=== PATIENT | male | born 1950 | race Caucasian/White ===

== ENCOUNTER 2024-11-26 11:20 | Day surgery (SDC) | payer MEDICARE ==
[~2024-11-26] VITALS: Ht 167.6 cm; Wt 118.8 kg
[~2024-11-26 11:20] MED LIST: ALLO300T2 PO; B-12100010 PO; BAYE81TA10 PO; D200CAP3 PO; FOLI1TAB11 PO; FOLI400T5 PO; FURO20TA2 PO; GLIP10TA15 PO; INVO100T PO; JARD1TAB3 PO; LIDOCAINE 2% 100MG/5ML SDV (FOR ANES.) As Ordered ONE; LISI20TA33 PO; MECL-86 PO; METF500T13 PO; METO1TAB7 PO; ROSU40TA81 PO; SEMA14TA2 PO; SIMV40TA20 PO; VASC1CAP2 PO; propofoL 200 MG/20 ML VIAL As Ordered ONE
[2024-11-26] MEDS ORDERED: DEXTROSE 50% 50ML SYRINGE IV PRN (13:50)
[2024-11-26] MEDS ORDERED: GLUCOSE 4 GM CHEW PO PRN (13:50)
[2024-11-26] MEDS ORDERED: INSULIN LISPRO (NovoLOG) PER UNIT SC PRN (13:50)
[2024-11-26] MEDS ORDERED: GLUCAGON INJ 1MG VIAL SC PRN (13:50)
[2024-11-26 14:32] VITALS: TEMP 98.2
[2024-11-26 14:53] VITALS: BP 151/80; O2SAT 96
== END 2024-11-26 15:03 | disposition home or self-care (01) ==
LOC: M OPP 11:20
PROVIDERS: ATTEND Internal Medicine Gastroenterology
DX: Z12.11 Encounter for screening for malignant neoplasm of colon (principal); Z12.12 Encounter for screening for malignant neoplasm of rectum; D12.3 Benign neoplasm of transverse colon; D12.0 Benign neoplasm of cecum; D12.2 Benign neoplasm of ascending colon; K57.30 Diverticulosis of large intestine without perforation or abscess without bleeding; K64.0 First degree hemorrhoids; Z86.0100 Personal history of colon polyps, unspecified; K21.9 Gastro-esophageal reflux disease without esophagitis; E11.9 Type 2 diabetes mellitus without complications; J44.9 Chronic obstructive pulmonary disease, unspecified; I10 Essential (primary) hypertension; E78.00 Pure hypercholesterolemia, unspecified; Z79.899 Other long term (current) drug therapy; Z79.84 Long term (current) use of oral hypoglycemic drugs; Z79.82 Long term (current) use of aspirin; Z79.85 Long-term (current) use of injectable non-insulin antidiabetic drugs; Z88.2 Allergy status to sulfonamides